=== PATIENT | female | born 1945 | race Caucasian/White ===

== ENCOUNTER 2018-02-20 11:41 | Inpatient (IN) ==
[2018-02-21] MEDS ORDERED: Albuterol 2.5 MG/3 ML NEBULIZER IH PRN (18:08)
[2018-02-21] MEDS ORDERED: Mag Hydrox/Al Hydrox/Simeth 30 ML UDC PO PRN (18:20)
[2018-02-21] MEDS: *HR* Rivaroxaban 15 MG TABLET PO SCH (21:34)
[2018-02-21] MEDS: Multivit/Ca/Min/Fe/FA 1 TAB TABLET PO SCH (21:34)
[2018-02-21] MEDS: Acetaminophen 325 MG TABLET PO SCH (21:34)
[2018-02-22] MEDS: Acetaminophen 325 MG TABLET PO SCH ×6 (04:00→22:07)
[2018-02-22] MEDS: Meropenem 1,000 MG in Water for inj. (sterile) 20 ML 10 ML IVP SCH ×2 (05:28→16:48)
[2018-02-22 05:43] LABS: Basophils % 0.6 %; Eosinophils # 0.3 K/mcL (0.0-0.6); Eosinophils % 6.3 %; Hematocrit 23.3 % (35.3-44.9); Hemoglobin 7.4 g/dL (11.5-15.4); Immature Granulocytes % 1.1 % (0-4); Lymphocytes # 1.3 K/mcL (0.6-4.6); Lymphocytes % 25.3 %; Mean Corpuscular HGB Conc 31.8 g/dL (31.6-35.5); Mean Corpuscular Hemoglobin 28.7 pg (28.0-33.3); Mean Corpuscular Volume 90.3 fL (83.0-100.0); Monocytes # 0.7 K/mcL (0.0-1.3); Monocytes % 13.6 %; Neutrophils # 2.8 K/mcL (1.6-8.9); Platelet Count 328 K/mcL (140-400); Red Blood Count 2.58 M/mcL (3.82-4.97); Red Cell Distribution Width 16.4 % (11.5-14.5); Segmented Neutrophils % 53.1 %
[2018-02-22 05:46] LABS: INR 2.2; Prothrombin Time 25.3 Seconds (9.4-12.1)
[2018-02-22 05:58] LABS: Calcium 8.8 mg/dL (8.6-10.3); Potassium 3.9 mEq/L (3.5-5.1)
[2018-02-22] MEDS: Aspirin Enteric Coated 81 MG Tablet PO SCH (08:26)
[2018-02-22] MEDS: Cholecalciferol (D-3) 1,000 UNIT TABLET PO SCH ×2 (08:26→08:36)
[2018-02-22] MEDS: Multivit/Ca/Min/Fe/FA 1 TAB TABLET PO SCH ×2 (08:26→20:58)
[2018-02-22] MEDS: Diltiazem CD (24hr) 120 MG CAPSULE PO SCH (08:26)
--- NOTE | 2018-02-22 11:28 | Internal Med History&Physical ---
Date of Encounter: 02/22/18 Time of Encounter: 11:26 Assessment and Plan (1) Bilateral pneumonia Current visit: Yes Status: Acute We will continue her antibiotics for 2 weeks as planned and follow with infectious disease by phone, near the end of that time. She will have strengthening exercises and hope to return to function, soon. If she is stable , will be able to wean oxygen. Qualifiers: Pneumonia type: due to unspecified organism Lung location: unspecified part of lung Qualified Code(s): J18.9 - Pneumonia, unspecified organism (2) Atrial fibrillation Current visit: Yes Status: Acute On cerebral toe and diltiazem for same. Qualifiers: Atrial fibrillation type: paroxysmal Qualified Code(s): I48.0 - Paroxysmal atrial fibrillation (3) Septic arthritis Current visit: Yes Status: Acute Plan reimplantation if clinically stable, as noted above. Qualifiers: Septic arthritis location: hip Septic arthritis organism: due to unspecified organism Laterality: right Qualified Code(s): M00.9 - Pyogenic arthritis, unspecified (4) GERD (gastroesophageal reflux disease) Current visit: Yes Status: Acute We will continue PPI. Qualifiers: Esophagitis presence: esophagitis presence not specified Qualified Code(s) : K21.9 - Gastro-esophageal reflux disease without esophagitis (5) Hemochromatosis Current visit: No Status: Chronic Not currently an issue. Qualifiers: Hemochromatosis type: hereditary Qualified Code(s): E83.110 - Hereditary hemochromatosis (6) Acute blood loss anemia Current visit: Yes Status: Acute This is ongoing and apparently complicated by renal insufficiency. (7) Chronic renal disease, stage III Current visit: Yes Status: Acute We will follow serial basic metabolic panels. (8) Paraproteinemia Current visit: Yes Status: Acute This will need to be followed at discharge. Not sure she has seen a specialist about this. (9) Hypervitaminosis D Current visit: Yes Status: Acute Vitamin D is on hold and we will recheck level. (10) Dermatomyositis Current visit: Yes Status: Acute Apparently, not acute but in past history. (11) History of DVT (deep vein thrombosis) Current visit: Yes Status: Acute On Xarelto for prevention. (12) Glaucoma Current visit: Yes Status: Acute On multiple eyedrops which we will continue. Qualifiers: Glaucoma type: unspecified Laterality: bilateral Qualified Code(s): H40.9 - Unspecified glaucoma Internal Medicine - H&P: HPI Chief complaint: Weakness after IV antibiotics. Admitted From: Hospital to Hospital Transfer Plans for Post Hospital Care: Home History of present illness: Ms. 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 She was admitted to [facility] with new infiltrates on her lungs and was treated with antibiotics for same. Chest x-ray at outside hospital was abnormal with bilateral infiltrates but especially left lower lung. She was seen in consultation by Dr. Drew Mathews, infectious disease medicine, who wants her to be on 2 weeks of IV meropenem, to have CBC, sedimentation rate , CRP, creatinine obtained every Saturday and faxed to him. (His fax number is [phone].) She is now sent here for strengthening and therapies to improve home function. She has a PICC line in the right upper extremity. Past medical history is significant for right total revision in May ( approximately ) 2017 with infection in September 2017. She underwent right hip radical debridement with spacer placement. This was revised in November 2017, as well. She was treated with antibiotics and was to have reimplantation on 09/2017. This surgery could not be performed as she had respiratory distress and was admitted to [facility] with pneumonia. Her kidneys have not functioned well and this was noted to be worse at her recent admission. Creatinine was up to 1.81. Apparently, she had improvement of this down into the 1.7 range. She was also noted to have a abnormal protein electrophoresis. Past medical history is as noted below. She is intolerant to sulfa and penicillin which cause stomach upset. She was treated for hemochromatosis beginning in 2007 but has not had a phlebotomy since May 2016 because of her upcoming problems with hip surgery. Recently, she has been noted to have anemia of blood loss and recent hemoglobin was 7.5. GERD, long-standing. this is treated with lansoprazole. She has a history of migraines but these have not been a recent problem. She has a history of paroxysmal atrial fibrillation and has had episodes, twice this year. She takes Cardiizem and Xarelto for same. She had a TIA in 2011. She has glaucoma for which she takes multiple eyedrops. She had a problem with hemorrhage after breast lumpectomy in 1988. History is significant for DVT in both legs, in the past. She has a history of dermatomyositis, diagnosed 2003, and for this reason takes Plaquenil. She had vitamin D deficiency and was on 4000 units daily for this. However because of hypercalcemia during her recent admission she was have a high vitamin D level (137) and this was discontinued. 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 She has a history of osteopenia and was on vitamin D as a way to treat this. Past surgical history is extensive and highlights include: Right ovarian cystectomy, 1965. D&C 1972. ORIF right clavicle fracture with subsequent hardware removal, 1975. Bone graft , right clavicle, 1977. YADIRA/BSO 1985. Right breast lumpectomy, benign, 1988. Cervical disc surgery, 1997. Cholecystectomy 2005. Left carpal tunnel release 2006. Liver biopsy 2007. Colonoscopic polypectomy 2007. Multiple colonoscopies thereafter. Arthroscopy left knee 2008. Right total hip replacement 2009. Bilateral levator surgery of eyelids, 2011. Eye surgery, left, 2014 for retina. Cataracts removed 2016. Left eye repair of macular hole, 2017. Right hip surgeries including radical debridement, as above, 2018. Review of systems is significant for right facial paralysis in 196. Current symptoms are controlled with PPI. She lives with her son. She does not smoke. Alcohol intake is rare. Past Med Surg Social Fam HX - Past Medical History Medical history: atrial fibrillation, cancer, GERD, glaucoma, hypertension, kidney stones, migraine, TIA, other Additional medical history: facial paralysis, right clavicular fracture, concussion, osteoarthritis, sepsis, hemochromatosis, DVT, chest pain, upper neck herniated disk, dermatomyositis, cataracts, carpal tunnel, tachycardia, anemia, squamous cell carcinoma, GI polyps, villalobos's cyst LLE, diverticular abscess, right kidney renal cyst, ovarian cyst, breast cancer Psychiatric history: no psych history - Past Surgical History Surgical History: breast surgery, cancer surgery, cholecystectomy, hip replacement, hysterectomy, knee replacement Additional surgical history: ovarian cyst excision, D&C, right clavicular bone graft, right breast lumpectomy, carpal tunnel surgery, liver biopsy, left TKR, right THR, bilateral eye levator surgery, bilateral eye cataract removal, right hip arthroplasty revision, right hip hardware removal - Social History Smoking Status: Never smoker Smokeless Tobacco Status: No Alcohol use: none Drug use: none Internal Medicine - H&P: Meds Calcium Carbonate/Vitamin D3 [Calcium 500 + D Tablet] 1 each PO DAILY 04/18/15 [ History] Lansoprazole [Prevacid] 30 mg PO DAILY 04/18/15 [History] Multivitamin/Iron/Folic Acid [Centrum Complete Multivit Tab] 1 each PO BID 04/18 [History] RX: Hydroxychloroquine [Plaquenuil] 400 mg PO DAILY 04/18/15 [History] Aspirin [Lo-Dose Aspirin EC] 81 mg PO DAILY 12/06/16 [History] Albuterol Neb [Proventil Neb] 2.5 mg IH Q6H PRN 02/21/18 [History] RX: Meropenem [Merrem] 1,000 mg IVPB Q12HR 02/21/18 [History] RX: Rivaroxaban [Xarelto] 15 mg PO HS 02/21/18 [History] dilTIAZem HCl [Diltiazem 24Hr ER] 120 mg PO DAILY 02/21/18 [History] 3 Allergy/AdvReac Type Severity Reaction Status Date / Time phenylephrine Allergy Intermediate Allergic Verified 04/18/15 10:57 rash to eyelid tropicamide Allergy Intermediate Allergic Verified 04/18/15 11:00 rash to eyelid Penicillins Allergy Unknown Unknown Verified 04/18/15 10:40 Sulfa (Sulfonamide Allergy Unknown Unknown Verified 04/18/15 10:40 Antibiotics) All Systems PM: Patient has no complaint of chest discomfort, dyspnea, orthopnea, breathing problems, palpitations, nausea or vomiting, constipation or diarrhea, other changes in bowel habits, heartburn, difficulty with urination, kidney problems or kidney stones, fevers chills or sweats, rash or itching, seizures, headache or lightheadedness, heat or cold intolerance, blood problems or anemia, or other new complaints, except as mentioned above. Review of systems is otherwise negative. - Constitutional Vitals: Temp Pulse Resp BP Pulse Ox 97.6 F 83 16 148/75 98 02/22/18 06:56 02/22/18 06:56 02/22/18 06:56 02/22/18 06:56 02/22/18 06:56 Exam: Examination: (Except as mentioned above): General: In no apparent distress, alert and oriented 3. Head: Atraumatic and normocephalic. Eyes: Extraocular muscles are intact, pupils equal round and reactive to light and accommodation. Sclerae anicteric. Ears: External ears are normal to inspection and hearing is grossly normal. Nose: Patent without lesion noted. Mouth: No intraoral lesions seen. Dentition is unremarkable. Neck: Supple with trachea midline. There is no thyromegaly or adenopathy and carotids are 2+ without bruit heard. Respiratory: No use of accessory muscles. Lungs are clear throughout, except moist rales at left base.. Normal airflow. Cardiovascular: Regular rate and rhythm without murmur appreciated. Abdomen: Bowel sounds are normal. No hepatosplenomegaly masses or tenderness. Obese and therefore difficult to palpate deeply.Patient is examined upright in chair and this also limits exam. Extremities: No cyanosis clubbing or edema. Neurological: A and O 3. Cranial nerves II through XII are intact. No focal deficits and no abnormal movements or postures. Skin: Warm and non-diaphoretic with no lesions noted. Breasts, pelvic and rectal: Not examined. Internal Med - H&P Results - Labs CBC & Chem 7: 02/22/18 04:35 02/22/18 04:35 Labs: Short CBC 02/22/18 Range/Units 04:35 WBC 5.2 (4.3-11.1) K/mcL Hgb 7.4 L (11.5-15.4) g/dL Hct 23.3 L (35.3-44.9) % Plt Count 328 (140-400) K/mcL Neutrophils # 2.8 (1.6-8.9) K/mcL [facility] 02/22/18 04:35 Sodium 138 Potassium 3.9 Chloride 104 Carbon Dioxide 28 BUN 10 Creatinine 1.59 H Glucose 88 Calcium 8.8
[2018-02-22] MEDS: *HR* Rivaroxaban 15 MG TABLET PO SCH (16:46)
[2018-02-23] MEDS: Acetaminophen 325 MG TABLET PO SCH ×3 (01:11→09:17)
[2018-02-23] MEDS: Meropenem 1,000 MG in Water for inj. (sterile) 20 ML 10 ML IVP SCH ×2 (06:23→17:57)
[2018-02-23] MEDS: Multivit/Ca/Min/Fe/FA 1 TAB TABLET PO SCH ×2 (09:16→22:34)
[2018-02-23] MEDS: Diltiazem CD (24hr) 120 MG CAPSULE PO SCH (09:17)
[2018-02-23] MEDS: Cholecalciferol (D-3) 1,000 UNIT TABLET PO SCH (09:17)
[2018-02-23] MEDS: Aspirin Enteric Coated 81 MG Tablet PO SCH (09:17)
--- NOTE | 2018-02-23 10:32 | Internal Med Progress Note ---
Date of Encounter: 02/23/18 Time of Encounter: 10:29 - Assessment and plan (1) Bilateral pneumonia Current Visit: Yes Status: Acute Assessment and plan: Improving. Continue IV antibiotics. Maintaining oxygen saturation on room air. Qualifiers: Pneumonia type: due to unspecified organism Lung location: unspecified part of lung Qualified Code(s): J18.9 - Pneumonia, unspecified organism (2) Atrial fibrillation Current Visit: Yes Status: Acute Assessment and plan: Rate and rhythm stable. Continues xarelto. Qualifiers: Atrial fibrillation type: paroxysmal Qualified Code(s): I48.0 - Paroxysmal atrial fibrillation (3) Septic arthritis Current Visit: Yes Status: Acute Assessment and plan: Continue IV antibiotics. Follow up with ortho as scheduled. Qualifiers: Septic arthritis location: hip Septic arthritis organism: due to unspecified organism Laterality: right Qualified Code(s): M00.9 - Pyogenic arthritis, unspecified (4) Acute blood loss anemia Current Visit: Yes Status: Acute Assessment and plan: Chronic issue. Last hemoglobin 7.4. Will follow. Patient asymptomatic. (5) Chronic renal disease, stage III Current Visit: Yes Status: Acute Assessment and plan: Creatinine 1.59. Will continue to monitor labs. Avoid any nephrotoxic agents. (6) History of DVT (deep vein thrombosis) Current Visit: Yes Status: Acute Assessment and plan: on xarelto for prevention. - Time Spent With Patient 25 - 35 minutes - Subjective Interval history: Patient resting in bed. States pain is controlled. Bowels moving as normal. Maintaining appetite and hydration. Denies fever, chills, nausea vomiting or diarrhea. Denies shortness of breath or chest pain. - Constitutional Vitals: Temp Pulse Resp BP Pulse Ox 97.7 F 85 16 137/74 93 02/23/18 07:01 02/23/18 07:01 02/23/18 07:01 02/23/18 07:01 02/23/18 07:01 General appearance: Present: cooperative, A&O X 3, no acute distress, answers questions appropriately - Head Head exam: Present: atraumatic, normocephalic - Eye Eye exam: Present: PERRL, conjuntiva pink, sclera anicteric Pupils: Present: PERRL - Neck Neck exam general surgery: Present: supple, trachea midline. Absent: lymphadenopathy - Respiratory Respiratory exam: Present: CTAB. Absent: accessory muscle use, rales, rhonchi, wheezes - Cardiovascular Cardiovascular exam: Present: RRR, +S1, +S2. Absent: diastolic murmur, gallop, rubs, systolic murmur - GI/Abdominal GI/Abdominal exam: Present: normal bowel sounds, soft, no peritoneal signs. Absent: distended, tenderness - Extremities Exam Extremities exam: Present: warm, radial pulses palpable and symmetrical. Absent : calf tenderness, cyanotic, pedal edema Additional comments: PICC line Right upper extremity - Neurological Exam Neurological exam: Present: CN II-XII intact, oriented X3, no focal deficits. Absent: pronater drift, facial droop, speech deficit - Skin Skin exam: Present: dry, intact Internal Medicine: Result - Labs CBC & Chem 7: 02/22/18 04:35 02/22/18 04:35 - ABG Interpretation ABG results: PT/INR, D-dimer PT 25.3 Seconds (9.4-12.1) H 02/22/18 04:35 Consult Discharge Plan - Plan Referrals: Palmira Piedra MD [Primary Care Provider] -
[2018-02-23] MEDS: Acetaminophen 325 MG TABLET PO PRN (14:14)
[2018-02-23] MEDS: *HR* Rivaroxaban 15 MG TABLET PO SCH (16:14)
[2018-02-24] MEDS: Meropenem 1,000 MG in Water for inj. (sterile) 20 ML 10 ML IVP SCH ×2 (06:05→18:21)
[2018-02-24 06:17] LABS: Basophils % 0.6 %; Eosinophils # 0.3 K/mcL (0.0-0.6); Eosinophils % 4.1 %; Hematocrit 23.3 % (35.3-44.9); Hemoglobin 7.4 g/dL (11.5-15.4); Immature Granulocytes % 1.1 % (0-4); Lymphocytes # 1.7 K/mcL (0.6-4.6); Lymphocytes % 27.1 %; Mean Corpuscular HGB Conc 31.8 g/dL (31.6-35.5); Mean Corpuscular Hemoglobin 28.2 pg (28.0-33.3); Mean Corpuscular Volume 88.9 fL (83.0-100.0); Mean Platelet Volume 9.9 fL (9.4-12.4); Monocytes # 0.9 K/mcL (0.0-1.3); Monocytes % 13.4 %; Neutrophils # 3.4 K/mcL (1.6-8.9); Platelet Count 343 K/mcL (140-400); Red Blood Count 2.62 M/mcL (3.82-4.97); Red Cell Distribution Width 16.6 % (11.5-14.5); Segmented Neutrophils % 53.7 %
--- NOTE | 2018-02-24 09:06 | Internal Med Progress Note ---
Date of Encounter: 02/24/18 Time of Encounter: 09:04 - Assessment and plan (1) Bilateral pneumonia Current Visit: Yes Status: Acute Assessment and plan: Improving. Continue IV antibiotics. Maintaining oxygen saturation on room air. Qualifiers: Pneumonia type: due to unspecified organism Lung location: unspecified part of lung Qualified Code(s): J18.9 - Pneumonia, unspecified organism (2) Atrial fibrillation Current Visit: Yes Status: Acute Assessment and plan: Rate and rhythm stable. Continues xarelto. Qualifiers: Atrial fibrillation type: paroxysmal Qualified Code(s): I48.0 - Paroxysmal atrial fibrillation (3) Septic arthritis Current Visit: Yes Status: Acute Assessment and plan: Continue IV antibiotics. Follow up with ortho as scheduled. Qualifiers: Septic arthritis location: hip Septic arthritis organism: due to unspecified organism Laterality: right Qualified Code(s): M00.9 - Pyogenic arthritis, unspecified (4) Acute blood loss anemia Current Visit: Yes Status: Acute Assessment and plan: Chronic issue. Last hemoglobin 7.4. Will follow. Patient asymptomatic. (5) Chronic renal disease, stage III Current Visit: Yes Status: Acute Assessment and plan: Creatinine 1.55. Will continue to monitor labs. Avoid any nephrotoxic agents. (6) History of DVT (deep vein thrombosis) Current Visit: Yes Status: Acute Assessment and plan: on xarelto for prevention. - Time Spent With Patient 25 - 35 minutes - Subjective Interval history: Patient sitting up and chair. States pain is controlled. Bowels moving as normal. Maintaining appetite and hydration. Denies fever, chills, nausea vomiting or diarrhea. Denies shortness of breath or chest pain. Oxygen level 94% on room air. - Constitutional Vitals: Temp Pulse Resp BP Pulse Ox 97.6 F 87 16 121/69 92 02/24/18 07:39 02/24/18 07:39 02/24/18 07:39 02/24/18 07:39 02/24/18 07:39 General appearance: Present: cooperative, A&O X 3, no acute distress, answers questions appropriately - Head Head exam: Present: atraumatic, normocephalic - Eye Eye exam: Present: PERRL, conjuntiva pink, sclera anicteric Pupils: Present: PERRL - Neck Neck exam general surgery: Present: supple, trachea midline. Absent: lymphadenopathy - Respiratory Respiratory exam: Present: CTAB. Absent: accessory muscle use, rales, rhonchi, wheezes Additional comments: Fine crackle to left lower lobe - Cardiovascular Cardiovascular exam: Present: RRR, +S1, +S2. Absent: diastolic murmur, gallop, rubs, systolic murmur - GI/Abdominal GI/Abdominal exam: Present: normal bowel sounds, soft, no peritoneal signs. Absent: distended, tenderness - Extremities Exam Extremities exam: Present: warm, radial pulses palpable and symmetrical. Absent : calf tenderness, cyanotic, pedal edema - Neurological Exam Neurological exam: Present: CN II-XII intact, oriented X3, no focal deficits. Absent: pronater drift, facial droop, speech deficit - Skin Skin exam: Present: dry, intact Internal Medicine: Result - Labs CBC & Chem 7: 02/24/18 05:50 02/24/18 05:50 Labs: Short CBC 02/24/18 Range/Units 05:50 WBC 6.3 (4.3-11.1) K/mcL Hgb 7.4 L (11.5-15.4) g/dL Hct 23.3 L (35.3-44.9) % Plt Count 343 (140-400) K/mcL Neutrophils # 3.4 (1.6-8.9) K/mcL [facility] 02/24/18 05:50 Creatinine 1.55 H - ABG Interpretation ABG results: PT/INR, D-dimer PT 25.3 Seconds (9.4-12.1) H 02/22/18 04:35 Consult Discharge Plan - Plan Referrals: Palmira Piedra MD [Primary Care Provider] -
[2018-02-24] MEDS: Diltiazem CD (24hr) 120 MG CAPSULE PO SCH (09:57)
[2018-02-24] MEDS: Multivit/Ca/Min/Fe/FA 1 TAB TABLET PO SCH ×2 (09:57→23:05)
[2018-02-24] MEDS: Cholecalciferol (D-3) 1,000 UNIT TABLET PO SCH (09:57)
[2018-02-24] MEDS: Aspirin Enteric Coated 81 MG Tablet PO SCH (09:57)
[2018-02-24] MEDS: *HR* Rivaroxaban 15 MG TABLET PO SCH (18:21)
[2018-02-25] MEDS: Meropenem 1,000 MG in Water for inj. (sterile) 20 ML 10 ML IVP SCH ×2 (05:47→18:49)
[2018-02-25] MEDS: Multivit/Ca/Min/Fe/FA 1 TAB TABLET PO SCH ×2 (09:14→20:32)
[2018-02-25] MEDS: Diltiazem CD (24hr) 120 MG CAPSULE PO SCH (09:14)
--- NOTE | 2018-02-25 10:40 | Internal Med Progress Note ---
Date of Encounter: 02/25/18 Time of Encounter: 10:38 - Assessment and plan (1) Bilateral pneumonia Current Visit: Yes Status: Acute Assessment and plan: Improving. Continue IV antibiotics. Maintaining oxygen saturation on room air. Qualifiers: Pneumonia type: due to unspecified organism Lung location: unspecified part of lung Qualified Code(s): J18.9 - Pneumonia, unspecified organism (2) Atrial fibrillation Current Visit: Yes Status: Acute Assessment and plan: Rate and rhythm stable. Continues xarelto. Qualifiers: Atrial fibrillation type: paroxysmal Qualified Code(s): I48.0 - Paroxysmal atrial fibrillation (3) Septic arthritis Current Visit: Yes Status: Acute Assessment and plan: Continue IV antibiotics. Follow up with ortho as scheduled. Qualifiers: Septic arthritis location: hip Septic arthritis organism: due to unspecified organism Laterality: right Qualified Code(s): M00.9 - Pyogenic arthritis, unspecified (4) Acute blood loss anemia Current Visit: Yes Status: Acute Assessment and plan: Chronic issue. Last hemoglobin 7.4. Will follow. repeat CBC, BMP in am. Patient asymptomatic. (5) Chronic renal disease, stage III Current Visit: Yes Status: Acute Assessment and plan: Creatinine 1.55. Will continue to monitor labs. will repeat BMP in am. Avoid any nephrotoxic agents. (6) History of DVT (deep vein thrombosis) Current Visit: Yes Status: Acute Assessment and plan: on xarelto for prevention. - Time Spent With Patient less than 15 minutes - Subjective Interval history: Participating well with therapy. Toe touch weight-bearing to right lower extremity. Standby to contact guard assist for transfers. Ambulating with front wheeled walker. States pain is controlled. Bowels moving as normal. Maintaining appetite and hydration. Denies fever, chills, nausea vomiting or diarrhea. Denies shortness of breath or chest pain. Oxygen level 94% on room air. has been having migraines daily, photophobia. denies IDOP at this time. nursing to follow up on when appt is for hematology, oncology for bone marrow biopsy results. - Constitutional Vitals: Temp Pulse Resp BP Pulse Ox 97.9 F 82 16 114/72 90 02/25/18 09:00 02/25/18 09:00 02/25/18 09:00 02/25/18 09:00 02/25/18 09:00 General appearance: Present: cooperative, A&O X 3, no acute distress, answers questions appropriately - Head Head exam: Present: atraumatic, normocephalic - Eye Eye exam: Present: PERRL, conjuntiva pink, sclera anicteric Pupils: Present: PERRL - Neck Neck exam general surgery: Present: supple, trachea midline. Absent: lymphadenopathy - Respiratory Respiratory exam: Present: CTAB. Absent: accessory muscle use, rales, rhonchi, wheezes - Cardiovascular Cardiovascular exam: Present: RRR, +S1, +S2. Absent: diastolic murmur, gallop, rubs, systolic murmur - GI/Abdominal GI/Abdominal exam: Present: normal bowel sounds, soft, no peritoneal signs. Absent: distended, tenderness - Extremities Exam Extremities exam: Present: warm, radial pulses palpable and symmetrical. Absent : calf tenderness, cyanotic, pedal edema - Neurological Exam Neurological exam: Present: CN II-XII intact, oriented X3, no focal deficits. Absent: pronater drift, facial droop, speech deficit - Skin Skin exam: Present: dry, intact Additional comments: scar to right hip Internal Medicine: Result - Labs CBC & Chem 7: 02/24/18 05:50 02/24/18 05:50 - ABG Interpretation ABG results: PT/INR, D-dimer PT 25.3 Seconds (9.4-12.1) H 02/22/18 04:35 Consult Discharge Plan - Plan Referrals: Matthew Francois MD [Partnered Physician] - 03/04/18 8:30 am Palmira Piedra MD [Primary Care Provider] -
[2018-02-25] MEDS: Aspirin Enteric Coated 81 MG Tablet PO SCH (13:46)
[2018-02-25] MEDS: *HR* Rivaroxaban 15 MG TABLET PO SCH (18:49)
[2018-02-25] MEDS: Acetaminophen 325 MG TABLET PO PRN (18:49)
[2018-02-26] MEDS: Meropenem 1,000 MG in Water for inj. (sterile) 20 ML 10 ML IVP SCH ×2 (05:59→17:49)
[2018-02-26 06:16] LABS: Basophils % 0.4 %; Eosinophils # 0.4 K/mcL (0.0-0.6); Eosinophils % 5.3 %; Hematocrit 22.4 % (35.3-44.9); Immature Granulocytes % 1.2 % (0-4); Lymphocytes # 1.8 K/mcL (0.6-4.6); Lymphocytes % 25.8 %; Mean Corpuscular HGB Conc 31.3 g/dL (31.6-35.5); Mean Corpuscular Volume 89.6 fL (83.0-100.0); Mean Platelet Volume 9.8 fL (9.4-12.4); Monocytes # 0.9 K/mcL (0.0-1.3); Monocytes % 13.3 %; Neutrophils # 3.8 K/mcL (1.6-8.9); Platelet Count 348 K/mcL (140-400); Red Cell Distribution Width 16.9 % (11.5-14.5)
[2018-02-26 06:32] LABS: Calcium 9.4 mg/dL (8.6-10.3); Potassium 3.6 mEq/L (3.5-5.1)
[2018-02-26] MEDS: Diltiazem CD (24hr) 120 MG CAPSULE PO SCH (08:59)
[2018-02-26] MEDS: Aspirin Enteric Coated 81 MG Tablet PO SCH (08:59)
[2018-02-26] MEDS: Multivit/Ca/Min/Fe/FA 1 TAB TABLET PO SCH ×2 (09:00→20:35)
--- NOTE | 2018-02-26 11:54 | Internal Med Progress Note ---
Addendum entered and electronically signed by Sushil Reid MD 02/27/18 14:04: Multiple attempts were unsuccessful to see patient because she was in the bathroom and/or in therapies this date. Original Note: Date of Encounter: 02/26/18 Time of Encounter: 11:52 - Assessment and plan (1) Bilateral pneumonia Current Visit: Yes Status: Acute Assessment and plan: Improving. Continue IV antibiotics. Maintaining oxygen saturation on room air. Qualifiers: Pneumonia type: due to unspecified organism Lung location: unspecified part of lung Qualified Code(s): J18.9 - Pneumonia, unspecified organism (2) Atrial fibrillation Current Visit: Yes Status: Acute Assessment and plan: Rate and rhythm stable. Continues xarelto. Qualifiers: Atrial fibrillation type: paroxysmal Qualified Code(s): I48.0 - Paroxysmal atrial fibrillation (3) Septic arthritis Current Visit: Yes Status: Acute Assessment and plan: Continue IV antibiotics. Follow up with ortho as scheduled. Qualifiers: Septic arthritis location: hip Septic arthritis organism: due to unspecified organism Laterality: right Qualified Code(s): M00.9 - Pyogenic arthritis, unspecified (4) Acute blood loss anemia Current Visit: Yes Status: Acute Assessment and plan: Chronic issue. hemoglobin 7.0 today. Will follow. repeat CBC in am. Patient asymptomatic. (5) Chronic renal disease, stage III Current Visit: Yes Status: Acute Assessment and plan: Creatinine 1.4. Will continue to monitor labs. will repeat BMP in am. Avoid any nephrotoxic agents. (6) History of DVT (deep vein thrombosis) Current Visit: Yes Status: Acute Assessment and plan: on xarelto for prevention. - Time Spent With Patient 25 - 35 minutes - Subjective Interval history: Participating well with therapy. Toe touch weight-bearing to right lower extremity. Standby to contact guard assist for transfers. Ambulating with front wheeled walker. States pain is controlled. Bowels moving as normal. Maintaining appetite and hydration. Denies fever, chills, nausea vomiting or diarrhea. Denies shortness of breath or chest pain. has been having migraines daily, photophobia. denies DIOP at this time. nursing to follow up on when appt is for hematology, oncology for bone marrow biopsy results. - Constitutional Vitals: Temp Pulse Resp BP Pulse Ox 97.8 F 88 20 131/70 90 02/26/18 07:52 10/17/18 07:52 02/26/18 07:52 02/26/18 07:52 02/26/18 07:52 General appearance: Present: cooperative, A&O X 3, no acute distress, answers questions appropriately - Head Head exam: Present: atraumatic, normocephalic - Eye Eye exam: Present: PERRL, conjuntiva pink, sclera anicteric Pupils: Present: PERRL - Neck Neck exam general surgery: Present: supple, trachea midline. Absent: lymphadenopathy - Respiratory Respiratory exam: Present: CTAB. Absent: accessory muscle use, rales, rhonchi, wheezes - Cardiovascular Cardiovascular exam: Present: RRR, +S1, +S2. Absent: diastolic murmur, gallop, rubs, systolic murmur - GI/Abdominal GI/Abdominal exam: Present: normal bowel sounds, soft, no peritoneal signs. Absent: distended, tenderness - Extremities Exam Extremities exam: Present: warm, radial pulses palpable and symmetrical. Absent: calf tenderness, cyanotic, pedal edema - Neurological Exam Neurological exam: Present: CN II-XII intact, oriented X3, no focal deficits. Absent: pronater drift, facial droop, speech deficit - Skin Skin exam: Present: dry, intact Internal Medicine: Result - Labs CBC & Chem 7: 02/26/18 05:50 02/26/18 05:50 Labs: Short CBC 02/26/18 Range/Units 05:50 WBC 6.9 (4.3-11.1) K/mcL Hgb 7.0 L (11.5-15.4) g/dL Hct 22.4 L (35.3-44.9) % Plt Count 348 (140-400) K/mcL Neutrophils # 3.8 (1.6-8.9) K/mcL BMP 02/26/18 05:50 Sodium 140 Potassium 3.6 Chloride 107 Carbon Dioxide 27 BUN 15 Creatinine 1.40 H Glucose 88 Calcium 9.4 - ABG Interpretation ABG results: PT/INR, D-dimer PT 25.3 Seconds (9.4-12.1) H 02/22/18 04:35 Consult Discharge Plan - Plan Referrals: Matthew Francois MD [Partnered Physician] - 03/04/18 8:30 Palmira Beavers MD [Primary Care Provider] -
--- NOTE | 2018-02-26 16:42 | Psychological Evaluation ---
Date of Encounter: 02/26/18 Time of Encounter: 02:45 History of Present Illness History of present illness: Ms. 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 Home Medications and Allergies Calcium Carbonate/Vitamin D3 [Calcium 500 + D Tablet] 1 each PO DAILY 04/18/15 [ History] Hydroxychloroquine [Plaquenuil] 400 mg PO DAILY 04/18/15 [History] Lansoprazole [Prevacid] 30 mg PO DAILY 04/18/15 [History] Multivitamin/Iron/Folic Acid [Centrum Complete Multivit Tab] 1 each PO BID 04/18 [History] Aspirin [Lo-Dose Aspirin EC] 81 mg PO DAILY 12/06/16 [History] Albuterol Neb [Proventil Neb] 2.5 mg IH Q6H PRN 02/21/18 [History] Meropenem [Merrem] 1,000 mg IVPB Q12HR 02/21/18 [History] Rivaroxaban [Xarelto] 15 mg PO HS 02/21/18 [History] dilTIAZem HCl [Diltiazem 24Hr ER] 120 mg PO DAILY 02/21/18 [History] 3 Allergy/AdvReac Type Severity Reaction Status Date / Time phenylephrine Allergy Intermediate Allergic Verified 04/18/15 10:57 rash to eyelid tropicamide Allergy Intermediate Allergic Verified 04/18/15 11:00 rash to eyelid Penicillins Allergy Unknown Unknown Verified 04/18/15 10:40 Sulfa (Sulfonamide Allergy Unknown Unknown Verified 04/18/15 10:40 Antibiotics) Social History - Social History Social History: since 2011 with 3 adult children one of which lives with her. 30 years with [employer] and retired. Has 24 hour care at home between son and grandson. - Alcohol Use Alcohol Use: none - Drug Use Drug Use: none Cognitive/Emotional Assessment - Cognitive Ability Abstract Thinking Ability: No Deficits Noted Attention Span Ability: Capable of Focused Attention, Capable of Sustained Attention Language Function Ability: No Deficits Noted Problem Solving Ability: Able To Solve Simple Problems Level of Alertness: Alert Memory Description: Recent Intact, Immediate Intact, Gear Lapper Intact Orientation: Person, Place Ability to Follow Directions: Good Speech Pattern: Normal rate Thought Process: Intact Calculations: Able to spell WORLD backw - Emotional Status Mood Description: Anxious Affect Description: Congruent with mood Coping Ability: Unsure about ability to cope (Very worried about situation and ability to get better. Anxious and breathing becomes irratic.) Assessment & Plan - Diagnosis (1) Adjustment disorder with anxious mood - Prognosis Prognosis: Fair - Treatment Plan Treatment Plan/Recommendations: Will follow as needed. Procedures - Intervention Interventions: Supportive Counseling - Participants Therapy Participant: Patient - Session Time Session Start Time: 02:45 Session Stop Time: 03:15
[2018-02-26] MEDS: *HR* Rivaroxaban 15 MG TABLET PO SCH (17:50)
[2018-02-26] MEDS: Acetaminophen 325 MG TABLET PO PRN (20:35)
[2018-02-27] MEDS ORDERED: *HR* Water for inj. (Sterile) 20 ML VIAL IV ONE (11:19)
[2018-02-27] MEDS ORDERED: Aspirin Enteric Coated 81 MG Tablet PO ONE (11:19)
[2018-02-27] MEDS ORDERED: Diltiazem CD (24hr) 120 MG CAPSULE PO ONE (11:19)
[2018-02-27 11:54] LABS: Hematocrit 22.9 % (35.3-44.9); Hemoglobin 7.1 g/dL (11.5-15.4)
--- NOTE | 2018-02-27 14:07 | Internal Med Progress Note ---
Date of Encounter: 02/27/18 Time of Encounter: 14:05 - Assessment and plan (1) Bilateral pneumonia Current Visit: Yes Status: Acute Assessment and plan: Will plan to discuss next week with Dr. Drew Mathews M.D., infectious disease specialist, about whether or not patient may be discharged. Qualifiers: Pneumonia type: due to unspecified organism Lung location: unspecified part of lung Qualified Code(s): J18.9 - Pneumonia, unspecified organism (2) Atrial fibrillation Current Visit: Yes Status: Acute Assessment and plan: Currently in normal sinus rhythm but will follow. Qualifiers: Atrial fibrillation type: paroxysmal Qualified Code(s): I48.0 - Paroxysmal atrial fibrillation (3) Septic arthritis Current Visit: Yes Status: Acute Assessment and plan: Apparently stable and on antibiotics. Qualifiers: Septic arthritis location: hip Septic arthritis organism: due to unspecified organism Laterality: right Qualified Code(s): M00.9 - Pyogenic arthritis, unspecified (4) GERD (gastroesophageal reflux disease) Current Visit: Yes Status: Acute Assessment and plan: No complaints and will continue current regimen. Qualifiers: Esophagitis presence: esophagitis presence not specified Qualified Code(s): K21.9 - Gastro-esophageal reflux disease without esophagitis (5) Hemochromatosis Current Visit: No Status: Chronic Assessment and plan: Not an issue, with current situation. Qualifiers: Hemochromatosis type: hereditary Qualified Code(s): E83.110 - Hereditary hemochromatosis (6) Acute blood loss anemia Current Visit: Yes Status: Acute Assessment and plan: This is ongoing and we will follow. May be worsened by paraproteinemia or plasmacytoma. (7) Chronic renal disease, stage III Current Visit: Yes Status: Acute Assessment and plan: Improving, slightly. (8) Paraproteinemia Current Visit: Yes Status: Acute (9) Hypervitaminosis D Current Visit: Yes Status: Acute Assessment and plan: No current issue. (10) Dermatomyositis Current Visit: Yes Status: Acute Assessment and plan: Clinically stable. (11) History of DVT (deep vein thrombosis) Current Visit: Yes Status: Acute (12) Glaucoma Current Visit: Yes Status: Acute Assessment and plan: We will continue current regimen. Qualifiers: Glaucoma type: unspecified Laterality: bilateral Qualified Code(s): H40.9 - Unspecified glaucoma - Subjective Interval history: Patient is still tired and occasionally desaturates but otherwise is feeling well. She denies other problems and is been moving her bowels well. She has no other new complaints. We discussed her anemia and need to follow-up with oncologist regarding paraproteinemia. Discussed care with other providers and/or nursing. Patient has no complaint of chest discomfort, dyspnea, orthopnea, palpitations, nausea or vomiting, constipation or diarrhea, other changes in bowel habits, difficulty with urination, rash or itching, or other new complaints, except as mentioned above. Review of systems is otherwise negative. - Constitutional Vitals: Temp Pulse Resp BP Pulse Ox 98.4 F 93 16 125/67 93 02/27/18 13:35 02/27/18 07:49 02/27/18 07:49 02/27/18 07:49 02/27/18 07:49 General appearance: Present: no acute distress Exam: Examination: (Except as mentioned above): General: In no apparent distress. Alert and oriented 3. Nondiaphoretic. Head: Atraumatic and normocephalic. Respiratory: No use of accessory muscles. Lungs are clear throughout. Normal airflow. Cardiovascular: Regular rate and rhythm without murmur appreciated. Abdomen: Bowel sounds are normal. No hepatosplenomegaly mass or tenderness appreciated. Obese and therefore difficult to palpate deeply. Patient is examined upright in chair and this also limits exam. Patient is examined uprig ht in chair and this also limits exam. Extremities: No cyanosis clubbing or edema. Skin: Warm and non-diaphoretic with no new lesions noted. Internal Medicine: Result - Labs CBC & Chem 7: 02/27/18 05:15 02/26/18 05:50 Labs: Short CBC 02/27/18 Range/Units 05:15 Hgb 7.1 L (11.5-15.4) g/dL Hct 22.9 L (35.3-44.9) % - ABG Interpretation ABG results: PT/INR, D-dimer PT 25.3 Seconds (9.4-12.1) H 02/22/18 04:35 Consult Discharge Plan - Plan Referrals: Matthew Francois MD [Partnered Physician] - 03/04/18 8:30 am Palmira Piedra MD [Primary Care Provider] -
[2018-02-27] MEDS: *HR* Rivaroxaban 15 MG TABLET PO SCH (17:53)
[2018-02-27] MEDS: Meropenem 1,000 MG in Water for inj. (sterile) 20 ML 10 ML IVP SCH ×2 (17:54→20:48)
[2018-02-27] MEDS: Multivit/Ca/Min/Fe/FA 1 TAB TABLET PO SCH (20:45)
[2018-02-27] MEDS: Aspirin Enteric Coated 81 MG Tablet PO SCH (20:48)
[2018-02-27] MEDS: Diltiazem CD (24hr) 120 MG CAPSULE PO SCH (20:55)
[2018-02-28 04:56] LABS: Hematocrit 22.3 % (35.3-44.9); Mean Corpuscular HGB Conc 31.4 g/dL (31.6-35.5); Mean Corpuscular Hemoglobin 28.2 pg (28.0-33.3); Mean Corpuscular Volume 89.9 fL (83.0-100.0); Mean Platelet Volume 9.7 fL (9.4-12.4); Platelet Count 366 K/mcL (140-400); Red Blood Count 2.48 M/mcL (3.82-4.97); Red Cell Distribution Width 17.3 % (11.5-14.5)
[2018-02-28] MEDS: Meropenem 1,000 MG in Water for inj. (sterile) 20 ML 10 ML IVP SCH ×2 (05:58→18:14)
[2018-02-28] MEDS: Diltiazem CD (24hr) 120 MG CAPSULE PO SCH (10:06)
[2018-02-28] MEDS: Aspirin Enteric Coated 81 MG Tablet PO SCH (10:07)
--- NOTE | 2018-02-28 13:03 | Internal Med Progress Note ---
Date of Encounter: 02/28/18 Time of Encounter: 13:00 - Assessment and plan (1) Bilateral pneumonia Current Visit: Yes Status: Acute Assessment and plan: Will plan to discuss next week with Dr. Drew Mathews M.D., infectious disease specialist, about whether or not patient may be discharged. She is to continue IV antibiotics until then. Qualifiers: Pneumonia type: due to unspecified organism Lung location: unspecified part of lung Qualified Code(s): J18.9 - Pneumonia, unspecified organism (2) Atrial fibrillation Current Visit: Yes Status: Acute Assessment and plan: Exam today is consistent with atrial fibrillation but rate is controlled. She is on Xarelto for this. Qualifiers: Atrial fibrillation type: paroxysmal Qualified Code(s): I48.0 - Paroxysmal atrial fibrillation (3) Septic arthritis Current Visit: Yes Status: Acute Assessment and plan: Apparently stable and on antibiotics. Apparently, to have a reimplant when finished with her antibiotics for her pneumonia. Qualifiers: Septic arthritis location: hip Septic arthritis organism: due to unspecified organism Laterality: right Qualified Code(s): M00.9 - Pyogenic arthritis, unspecified (4) GERD (gastroesophageal reflux disease) Current Visit: Yes Status: Acute Assessment and plan: No complaints and will continue current regimen. Qualifiers: Esophagitis presence: esophagitis presence not specified Qualified Code(s): K21.9 - Gastro-esophageal reflux disease without esophagitis (5) Acute blood loss anemia Current Visit: Yes Status: Acute (6) Chronic renal disease, stage III Current Visit: Yes Status: Acute Assessment and plan: Improving, slightly. (Creatinine yesterday was 1.4). (7) Paraproteinemia Current Visit: Yes Status: Acute Assessment and plan: Appointment as noted above. (8) Hypervitaminosis D Current Visit: Yes Status: Acute Assessment and plan: Vitamin D is thus on hold. (9) Dermatomyositis Current Visit: Yes Status: Acute Assessment and plan: Clinically stable. (10) History of DVT (deep vein thrombosis) Current Visit: Yes Status: Acute Assessment and plan: On Xarelto. (11) Glaucoma Current Visit: Yes Status: Acute Assessment and plan: We will continue current regimen. Qualifiers: Glaucoma type: unspecified Laterality: bilateral Qualified Code(s): H40.9 - Unspecified glaucoma (12) Loose bowel movement Current Visit: Yes Status: Acute Assessment and plan: This does not sound like diarrhea but will need to monitor, given the patient on multiple antibiotics. - Subjective Interval history: Patient has only the complaint of loose bowels. She has had a total of 4 bowel movements since last evening but this afternoon her bowels seem normal. She denies diarrhea and states they are only loose. She thinks she is a little more swollen at the ankles and she normally is. She denies dyspnea, etc. She is awaiting her 03/04/2018 appointment with oncology regarding her abnormal protein in her blood. Discussed care with other providers and/or nursing. Patient has no complaint of chest discomfort, dyspnea, orthopnea, palpitations, nausea or vomiting, constipation or diarrhea, other changes in bowel habits, difficulty with urination, rash or itching, or other new complaints, except as mentioned above. Review of systems is otherwise negative. - Constitutional Vitals: Temp Pulse Resp BP Pulse Ox 97.9 F 97 16 143/72 91 02/28/18 08:00 02/28/18 08:00 02/28/18 08:00 02/28/18 08:00 02/28/18 08:00 Exam: Examination: (Except as mentioned above): General: In no apparent distress. Alert and oriented 3. Nondiaphoretic. Head: Atraumatic and normocephalic. Respiratory: No use of accessory muscles. Lungs are clear throughout. Normal airflow. Cardiovascular: Irregularly irregular consistent with atrial fibrillation. Abdomen: Bowel sounds are normal. No hepatosplenomegaly mass or tenderness appreciated. Obese and therefore difficult to palpate deeply. Extremities: No cyanosis clubbing or edema. I see not even trace edema. Skin: Warm and non-diaphoretic with no new lesions noted. Internal Medicine: Result - Labs CBC & Chem 7: 02/28/18 04:36 02/26/18 05:50 Labs: Short CBC 02/28/18 Range/Units 04:36 WBC 7.5 (4.3-11.1) K/mcL Hgb 7.0 L (11.5-15.4) g/dL Hct 22.3 L (35.3-44.9) % Plt Count 366 (140-400) K/mcL - ABG Interpretation ABG results: PT/INR, D-dimer PT 25.3 Seconds (9.4-12.1) H 02/22/18 04:35 Consult Discharge Plan - Plan Referrals: Matthew Francois MD [Partnered Physician] - 03/04/18 8:30 am Palmira Piedra MD [Primary Care Provider] -
[2018-02-28] MEDS: *HR* Rivaroxaban 15 MG TABLET PO SCH (18:14)
[2018-02-28] MEDS: Multivit/Ca/Min/Fe/FA 1 TAB TABLET PO SCH (19:58)
[2018-03-01] MEDS: Meropenem 1,000 MG in Water for inj. (sterile) 20 ML 10 ML IVP SCH ×2 (05:53→17:27)
[2018-03-01] MEDS: Aspirin Enteric Coated 81 MG Tablet PO SCH (08:42)
[2018-03-01] MEDS: Diltiazem CD (24hr) 120 MG CAPSULE PO SCH (08:42)
--- NOTE | 2018-03-01 12:02 | Electrocardiograph Report ---
[place] [id number] Test Date: 2018-02-28 Pat Name: Isidra Borges Department: 2001 Room: 105 Gender: F Button Clamper: Tb : 1945 Requested By: Sushil Reid Order Number: [id number] Reading MD: Jeannette Brown Measurements Intervals [place] Rate: 97 P: 8 MD: 160 QRS: -26 QRSD: 104 T: 1 QT: 374 QTc: 429 Interpretive Statements SINUS RHYTHM BORDERLINE LEFT AXIS DEVIATION [QRS AXIS < -20] LOW QRS VOLTAGE IN PRECORDIAL LEADS [QRS DEFLECTION < 1.0 mV IN CHEST LEADS] Electronically Signed On 03-01-2018 12:01:11 EDT by Jeannette Brown
--- NOTE | 2018-03-01 15:21 | Internal Med Progress Note ---
Date of Encounter: 03/01/18 Time of Encounter: 15:10 - Assessment and plan (1) Bilateral pneumonia Current Visit: Yes Status: Acute Assessment and plan: Continue current therapy. Discussion with Dr. Drew Mathews as planned for next week per primary team. Qualifiers: Pneumonia type: due to unspecified organism Lung location: unspecified part of lung Qualified Code(s): J18.9 - Pneumonia, unspecified organism (2) Atrial fibrillation Current Visit: Yes Status: Acute Assessment and plan: Continue current therapy, including Xarelto. Qualifiers: Atrial fibrillation type: paroxysmal Qualified Code(s): I48.0 - Paroxysmal atrial fibrillation (3) Septic arthritis Current Visit: Yes Status: Acute Assessment and plan: Continue current therapy, including reimplant after finishing with antibiotics f or PNA per report. Qualifiers: Septic arthritis location: hip Septic arthritis organism: due to unspecified organism Laterality: right Qualified Code(s): M00.9 - Pyogenic arthritis, unspecified (4) GERD (gastroesophageal reflux disease) Current Visit: Yes Status: Acute Assessment and plan: Continue current regimen. Qualifiers: Esophagitis presence: esophagitis presence not specified Qualified Code(s): K21.9 - Gastro-esophageal reflux disease without esophagitis (5) Acute blood loss anemia Current Visit: Yes Status: Acute Assessment and plan: Asymptomatic at this time. CBC/d tomorrow morning. (6) Chronic renal disease, stage III Current Visit: Yes Status: Acute Assessment and plan: Continue current therapy. (7) Hypervitaminosis D Current Visit: Yes Status: Acute Assessment and plan: Continue to hold off on vitamin D. (8) History of DVT (deep vein thrombosis) Current Visit: Yes Status: Acute Assessment and plan: Continue Xarelto. (9) Loose bowel movement Current Visit: Yes Status: Acute Assessment and plan: Clinical monitoring. - Time Spent With Patient less than 15 minutes - Subjective Interval history: No bleeding. Feeling "fine." Has been having loose and soft stools, but no diarrhea. - Constitutional Vitals: Temp Pulse Resp BP Pulse Ox 97.9 F 101 18 146/72 93 03/01/18 07:06 03/01/18 07:06 03/01/18 07:06 03/01/18 07:06 03/01/18 07:06 General appearance: Present: no acute distress Exam: Gen: A&Ox3, NAD. HEENT: NCAT. Neck: No palpable lymphadenopathy or thyromegaly. CV: RRR, S1S2. No murmur. Lungs: Adequate air exchange with mild, bibasilar crackles. Abd: (+)BS. NDNT. Neuro: RLE weakness noted (due to multiple surgeries per the patient). Skin: No rash. Ext: No pitting edema. Internal Medicine: Result - Labs CBC & Chem 7: 02/28/18 04:36 02/26/18 05:50 - ABG Interpretation ABG results: PT/INR, D-dimer PT 25.3 Seconds (9.4-12.1) H 02/22/18 04:35 Consult Discharge Plan - Plan Referrals: Matthew Francois MD [Partnered Physician] - 03/04/18 8:30 am Palmira Piedra MD [Primary Care Provider] -
[2018-03-01] MEDS: *HR* Rivaroxaban 15 MG TABLET PO SCH (17:27)
[2018-03-01] MEDS: Multivit/Ca/Min/Fe/FA 1 TAB TABLET PO SCH (20:21)
[2018-03-02 05:09] LABS: Basophils % 0.6 %; Eosinophils # 0.5 K/mcL (0.0-0.6); Eosinophils % 6.2 %; Hematocrit 23.7 % (35.3-44.9); Hemoglobin 7.6 g/dL (11.5-15.4); Immature Granulocytes % 0.7 % (0-4); Lymphocytes # 2.1 K/mcL (0.6-4.6); Lymphocytes % 28.4 %; Mean Corpuscular HGB Conc 32.1 g/dL (31.6-35.5); Mean Corpuscular Hemoglobin 28.7 pg (28.0-33.3); Mean Corpuscular Volume 89.4 fL (83.0-100.0); Mean Platelet Volume 9.5 fL (9.4-12.4); Monocytes % 13.6 %; Neutrophils # 3.6 K/mcL (1.6-8.9); Platelet Count 383 K/mcL (140-400); Red Blood Count 2.65 M/mcL (3.82-4.97); Segmented Neutrophils % 50.5 %
[2018-03-02] MEDS: Meropenem 1,000 MG in Water for inj. (sterile) 20 ML 10 ML IVP SCH ×2 (06:17→16:59)
[2018-03-02] MEDS: Diltiazem CD (24hr) 120 MG CAPSULE PO SCH (08:50)
[2018-03-02] MEDS: Aspirin Enteric Coated 81 MG Tablet PO SCH (08:51)
--- NOTE | 2018-03-02 13:24 | Internal Med Progress Note ---
Date of Encounter: 03/02/18 Time of Encounter: 13:10 - Assessment and plan (1) Bilateral pneumonia Current Visit: Yes Status: Acute Assessment and plan: Continue current therapy. Discussion with Dr. Drew Mathews as planned for next week per primary team. Qualifiers: Pneumonia type: due to unspecified organism Lung location: unspecified part of lung Qualified Code(s): J18.9 - Pneumonia, unspecified organism (2) Atrial fibrillation Current Visit: Yes Status: Acute Assessment and plan: Continue current therapy, including Xarelto. Qualifiers: Atrial fibrillation type: paroxysmal Qualified Code(s): I48.0 - Paroxysmal atrial fibrillation (3) Septic arthritis Current Visit: Yes Status: Acute Assessment and plan: Continue current therapy, including reimplant after finishing with antibiotics f or PNA per report. Qualifiers: Septic arthritis location: hip Septic arthritis organism: due to unspecified organism Laterality: right Qualified Code(s): M00.9 - Pyogenic arthritis, unspecified (4) GERD (gastroesophageal reflux disease) Current Visit: Yes Status: Acute Assessment and plan: Continue current regimen. Qualifiers: Esophagitis presence: esophagitis presence not specified Qualified Code(s): K21.9 - Gastro-esophageal reflux disease without esophagitis (5) Acute blood loss anemia Current Visit: Yes Status: Acute Assessment and plan: Asymptomatic at this time. H&H improving. Continue clinical monitoring. (6) Chronic renal disease, stage III Current Visit: Yes Status: Acute Assessment and plan: Continue current therapy. (7) Hypervitaminosis D Current Visit: Yes Status: Acute Assessment and plan: Continue to hold off on vitamin D. (8) History of DVT (deep vein thrombosis) Current Visit: Yes Status: Acute (9) Loose bowel movement Current Visit: Yes Status: Acute Assessment and plan: Clinical monitoring. - Time Spent With Patient less than 15 minutes - Subjective Interval history: Feeling "not too bad." Has been having loose and soft stools, but no diarrhea. Glad to know H&H went up. - Constitutional Vitals: Temp Pulse Resp BP Pulse Ox 98.2 F 87 16 127/67 95 03/02/18 07:00 03/02/18 07:00 03/02/18 07:00 03/02/18 07:00 03/02/18 07:00 General appearance: Present: no acute distress Exam: Gen: A&Ox3, NAD. HEENT: NCAT. Neck: No palpable lymphadenopathy or thyromegaly. CV: RRR, S1S2. No murmur. Capillary refill < 2 seconds. Lungs: Adequate air exchange with mild, bibasilar crackles. Abd: (+)BS. NDNT. Neuro: RLE weakness noted. Skin: No rash. Ext: No pitting edema. Internal Medicine: Result - Labs CBC & Chem 7: 03/02/18 04:50 02/26/18 05:50 Labs: Short CBC 03/02/18 Range/Units 04:50 WBC 7.2 (4.3-11.1) K/mcL Hgb 7.6 L (11.5-15.4) g/dL Hct 23.7 L (35.3-44.9) % Plt Count 383 (140-400) K/mcL Neutrophils # 3.6 (1.6-8.9) K/mcL - ABG Interpretation ABG results: PT/INR, D-dimer PT 25.3 Seconds (9.4-12.1) H 02/22/18 04:35 Consult Discharge Plan - Plan Referrals: Matthew Francois MD [Partnered Physician] - 03/04/18 8:30 am Palmira Piedra MD [Primary Care Provider] -
[2018-03-02] MEDS: *HR* Rivaroxaban 15 MG TABLET PO SCH (16:59)
[2018-03-02] MEDS: Multivit/Ca/Min/Fe/FA 1 TAB TABLET PO SCH (19:53)
[2018-03-03] MEDS: Meropenem 1,000 MG in Water for inj. (sterile) 20 ML 10 ML IVP SCH ×2 (06:00→18:16)
[2018-03-03 06:44] LABS: Calcium 9.1 mg/dL (8.6-10.3); Potassium 3.9 mEq/L (3.5-5.1)
[2018-03-03] MEDS: Aspirin Enteric Coated 81 MG Tablet PO SCH (08:18)
[2018-03-03] MEDS: Diltiazem CD (24hr) 120 MG CAPSULE PO SCH (08:18)
[2018-03-03 09:22] LABS: Basophils % 0.5 %; Eosinophils # 0.4 K/mcL (0.0-0.6); Eosinophils % 5.8 %; Hematocrit 24.4 % (35.3-44.9); Hemoglobin 7.7 g/dL (11.5-15.4); Immature Granulocytes % 0.5 % (0-4); Lymphocytes % 30.6 %; Mean Corpuscular HGB Conc 31.6 g/dL (31.6-35.5); Mean Corpuscular Hemoglobin 28.6 pg (28.0-33.3); Mean Corpuscular Volume 90.7 fL (83.0-100.0); Monocytes # 0.9 K/mcL (0.0-1.3); Neutrophils # 3.2 K/mcL (1.6-8.9); Platelet Count 389 K/mcL (140-400); Red Blood Count 2.69 M/mcL (3.82-4.97); Red Cell Distribution Width 18.4 % (11.5-14.5); Segmented Neutrophils % 48.6 %
--- NOTE | 2018-03-03 11:56 | Internal Med Progress Note ---
Addendum entered and electronically signed by Sushil Reid MD 03/03/18 11:58: I have personally performed a face to face evaluation on this patient. I have r eviewed and agree with the care plan. History and Exam by me shows: Bowels have normalized. Patient states that she has not needed oxygen for several days and her breathing feels like it is doing "pretty good." She has oncology appointment tomorrow to go over her bone marrow biopsy. Discussed care with other providers and/or nursing. Patient has no complaint of chest discomfort, dyspnea, orthopnea, palpitations, nausea or vomiting, constipation or diarrhea, other changes in bowel habits, difficulty with urination, rash or itching, or other new complaints, except as mentioned above. Review of systems is otherwise negative. Examination: (Except as mentioned above): General: In no apparent distress. Alert and oriented 3. Nondiaphoretic. Head: Atraumatic and normocephalic. Respiratory: No use of accessory muscles. Lungs are clear throughout. Normal airflow. Cardiovascular: Regular rate and rhythm without murmur appreciated. Abdomen: Bowel sounds are normal. No hepatosplenomegaly mass or tenderness appreciated. Obese and therefore difficult to palpate deeply. Extremities: No cyanosis clubbing or edema. Skin: Warm and non-diaphoretic with no new lesions noted. I informed patient that I would try to get ahold of her infectious disease doctor, later today. Original Note: Date of Encounter: 03/03/18 Time of Encounter: 11:53 - Assessment and plan (1) Bilateral pneumonia Current Visit: Yes Status: Resolved Assessment and plan: Improving. Continue IV antibiotics. Maintaining oxygen saturation on room air. to follow up with Dr hernandez. Qualifiers: Pneumonia type: due to unspecified organism Lung location: unspecified part of lung Qualified Code(s): J18.9 - Pneumonia, unspecified organism (2) Atrial fibrillation Current Visit: Yes Status: Acute Assessment and plan: Rate and rhythm stable. Continues xarelto. Qualifiers: Atrial fibrillation type: paroxysmal Qualified Code(s): I48.0 - Paroxysmal atrial fibrillation (3) Septic arthritis Current Visit: Yes Status: Acute Assessment and plan: Continue IV antibiotics. Follow up with ortho as scheduled. Qualifiers: Septic arthritis location: hip Septic arthritis organism: due to unspecified organism Laterality: right Qualified Code(s): M00.9 - Pyogenic a rthritis, unspecified (4) Acute blood loss anemia Current Visit: Yes Status: Acute Assessment and plan: Chronic issue. hemoglobin 7.7 today. stable. Will follow. repeat CBC in am. Patient asymptomatic. (5) Chronic renal disease, stage III Current Visit: Yes Status: Acute Assessment and plan: Will continue to monitor labs. Avoid any nephrotoxic agents. (6) History of DVT (deep vein thrombosis) Current Visit: Yes Status: Acute Assessment and plan: on xarelto for prevention. - Time Spent With Patient less than 15 minutes - Subjective Interval history: Participating well with therapy. Toe touch weight-bearing to right lower extremity. Standby to contact guard assist for transfers. Ambulating with front wheeled walker. States pain is controlled. Bowels moving as normal. Maintaining appetite and hydration. Denies fever, chills, nausea vomiting or diarrhea. Denies shortness of breath or chest pain. - Constitutional Vitals: Temp Pulse Resp BP Pulse Ox 97.6 F 98 16 134/57 93 03/03/18 06:46 03/03/18 06:46 03/03/18 06:46 03/03/18 06:46 03/03/18 06:46 General appearance: Present: A&O X 3, pleasant, no acute distress, answers ques tions appropriately - Head Head exam: Present: atraumatic, normocephalic - Eye Eye exam: Present: PERRL, conjuntiva pink, sclera anicteric Pupils: Present: PERRL - Neck Neck exam general surgery: Present: supple, trachea midline. Absent: lymphadenopathy - Respiratory Respiratory exam: Present: CTAB. Absent: accessory muscle use, rales, rhonchi, wheezes - Cardiovascular Cardiovascular exam: Present: RRR, +S1, +S2. Absent: diastolic murmur, gallop, rubs, systolic murmur - GI/Abdominal GI/Abdominal exam: Present: normal bowel sounds, soft, no peritoneal signs. Absent: distended, tenderness - Extremities Exam Extremities exam: Present: warm, radial pulses palpable and symmetrical. Absent: calf tenderness, cyanotic, pedal edema - Neurological Exam Neurological exam: Present: CN II-XII intact, oriented X3, no focal deficits. Absent: pronater drift, facial droop, speech deficit - Skin Skin exam: Present: dry, intact Internal Medicine: Result - Labs CBC & Chem 7: 03/03/18 06:15 03/03/18 06:15 Labs: Short CBC 03/03/18 Range/Units 06:15 WBC 6.6 (4.3-11.1) K/mcL Hgb 7.7 L (11.5-15.4) g/dL Hct 24.4 L (35.3-44.9) % Plt Count 389 (140-400) K/mcL Neutrophils # 3.2 (1.6-8.9) K/mcL BMP 03/03/18 06:15 Sodium 138 Potassium 3.9 Chloride 107 Carbon Dioxide 27 BUN 15 Creatinine 1.29 H Glucose 95 Calcium 9.1 - ABG Interpretation ABG results: PT/INR, D-dimer PT 25.3 Seconds (9.4-12.1) H 02/22/18 04:35 Consult Discharge Plan - Plan Referrals: Matthew Francois MD [Partnered Physician] - 03/04/18 8:30 am Palmira Piedra MD [Primary Care Provider] -
[2018-03-03] MEDS: *HR* Rivaroxaban 15 MG TABLET PO SCH (16:44)
[2018-03-03] MEDS: Acetaminophen 325 MG TABLET PO PRN (16:44)
[2018-03-03] MEDS: Multivit/Ca/Min/Fe/FA 1 TAB TABLET PO SCH (20:55)
[2018-03-04] MEDS: Meropenem 1,000 MG in Water for inj. (sterile) 20 ML 10 ML IVP SCH (05:58)
[2018-03-04] MEDS: Aspirin Enteric Coated 81 MG Tablet PO SCH (11:09)
[2018-03-04] MEDS: Diltiazem CD (24hr) 120 MG CAPSULE PO SCH (11:09)
--- NOTE | 2018-03-04 12:01 | Internal Med Progress Note ---
Date of Encounter: 03/04/18 Time of Encounter: 12:09 - Assessment and plan (1) Bilateral pneumonia Current Visit: Yes Status: Resolved Assessment and plan: Improving. Continue IV antibiotics. Maintaining oxygen saturation on room air. to follow up with Dr hernandez. Qualifiers: Pneumonia type: due to unspecified organism Lung location: unspecified part of lung Qualified Code(s): J18.9 - Pneumonia, unspecified organism (2) Atrial fibrillation Current Visit: Yes Status: Acute Assessment and plan: Rate and rhythm stable. Continues xarelto. Qualifiers: Atrial fibrillation type: paroxysmal Qualified Code(s): I48.0 - Paroxysmal atrial fibrillation (3) Septic arthritis Current Visit: Yes Status: Acute Assessment and plan: Continue IV antibiotics. Follow up with ortho as scheduled. Qualifiers: Septic arthritis location: hip Septic arthritis organism: due to unspecified organism Laterality: right Qualified Code(s): M00.9 - Pyogenic arthritis, unspecified (4) Acute blood loss anemia Current Visit: Yes Status: Acute Assessment and plan: Chronic issue. hemoglobin 7.7 yesterday. stable. Will follow. repeat CBC in am. Patient asymptomatic. (5) Chronic renal disease, stage III Current Visit: Yes Status: Acute Assessment and plan: Will continue to monitor labs. Avoid any nephrotoxic agents. (6) History of DVT (deep vein thrombosis) Current Visit: Yes Status: Acute Assessment and plan: on xarelto for prevention. - Time Spent With Patient less than 15 minutes - Subjective Interval history: Participating well with therapy. Toe touch weight-bearing to right lower extremity. Patient is mod independent in room. Ambulating with front wheeled walker. States pain is controlled. Bowels moving as normal. Maintaining appetite and hydration. Denies fever, chills, nausea vomiting or diarrhea. Denies shortness of breath or chest pain. Returned from oncology appointment. No new orders. - Constitutional Vitals: Temp Pulse Resp BP Pulse Ox 98.3 F 90 16 128/73 96 03/04/18 07:00 03/04/18 07:00 03/04/18 07:00 03/04/18 07:00 03/04/18 07:00 General appearance: Present: cooperative, A&O X 3, pleasant, no acute distress, answers questions appropriately - Head Head exam: Present: atraumatic, normocephalic - Eye Eye exam: Present: PERRL, conjuntiva pink, sclera anicteric Pupils: Present: PERRL - Neck Neck exam general surgery: Present: supple, trachea midline. Absent: lymphad enopathy - Respiratory Respiratory exam: Present: CTAB. Absent: accessory muscle use, rales, rhonchi, wheezes - Cardiovascular Cardiovascular exam: Present: RRR, +S1, +S2. Absent: diastolic murmur, gallop, rubs, systolic murmur - GI/Abdominal GI/Abdominal exam: Present: normal bowel sounds, soft, no peritoneal signs. Absent: distended, tenderness - Extremities Exam Extremities exam: Present: warm, radial pulses palpable and symmetrical. Absent: calf tenderness, cyanotic, pedal edema - Neurological Exam Neurological exam: Present: CN II-XII intact, oriented X3, no focal deficits. Absent: pronater drift, facial droop, speech deficit - Skin Skin exam: Present: dry, intact Internal Medicine: Result - Labs CBC & Chem 7: 03/03/18 06:15 03/03/18 06:15 - ABG Interpretation ABG results: PT/INR, D-dimer PT 25.3 Seconds (9.4-12.1) H 02/22/18 04:35 Consult Discharge Plan - Plan Referrals: Matthew Francois MD [Partnered Physician] - 03/04/18 8:30 am Palmira Piedra MD [Primary Care Provider] -
[2018-03-04] MEDS ORDERED: Bismuth Subsalicylate 120 ML ORAL SUSPENSION PO PRN (14:21)
[2018-03-04] MEDS: *HR* Rivaroxaban 15 MG TABLET PO SCH (16:40)
[2018-03-04] MEDS: Multivit/Ca/Min/Fe/FA 1 TAB TABLET PO SCH (19:56)
[2018-03-05 06:58] VITALS: BP 113/67
[2018-03-05] MEDS: Diltiazem CD (24hr) 120 MG CAPSULE PO SCH (07:46)
[2018-03-05] MEDS: Aspirin Enteric Coated 81 MG Tablet PO SCH (07:47)
[2018-03-05] MEDS ORDERED: Doxycycline 100 MG CAPSULE PO SCH (09:00)
--- NOTE | 2018-03-05 09:53 | Discharge Summary ---
Date of Encounter: 03/05/18 Time of Encounter: 09:49 - Discharge Diagnosis (1) Septic arthritis Priority: Primary Status: Acute Comments: Patient currently is doing well. 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 Patient had follow-up with infectious disease with follow-up orders having her IV antibiotics discontinued and patient was placed on oral doxycycline for continued antibiotic coverage. Right hip surgical incision appears to be healing well. Patient remains toe-touch on right foot and has progressed well with physical therapy. Pain has been well managed with current medications. Patient is being discharged to home with follow-up with orthopedic surgeon and infectious disease physician. Patient is to follow-up with primary care physician and continue with current home medications. Patient will be given a prescription for doxycycline. Patient will continue with physical therapy through home health services Qualifiers: Septic arthritis location: hip Septic arthritis organism: due to unspecified organism Laterality: right Qualified Code(s): M00.9 - Pyogenic arthritis, unspecified (2) Bilateral pneumonia Priority: Secondary Status: Acute Comments: Patient had been treated for bilateral pneumonia. Currently patient has been afebrile with no productive cough. Patient has fine basilar rales heard to the left. Denies any dyspnea or chest discomforts. We will continue with doxycycline after discharge. We will continue follow-up with PCP Qualifiers: Pneumonia type: due to unspecified organism Lung location: unspecified part of lung Qualified Code(s): J18.9 - Pneumonia, unspecified organism (3) Atrial fibrillation Priority: Secondary Status: Chronic Comments: No acute issues during stay of facility. Patient's heart rate remains irregular but controlled rate less than 100. Patient is continue with current home medications after discharge. We will follow-up with PCP. Qualifiers: Atrial fibrillation type: paroxysmal Qualified Code(s): I48.0 - Paroxysmal atrial fibrillation (4) Chronic renal disease, stage III Priority: Secondary Status: Chronic Comments: No acute issues during stay. Patient's last creatinine has been actually lower at 1.29. We will continue with current home medications. Patient will continue with follow-up with PCP for further management Hospital course: Ms. Borges is a 72 year old female, who had a right total revision in May (approximately ) 2017 with infection in September 2017. She underwent right hip radical debridement with spacer placement. This was revised in November 2017, as well. She was treated with antibiotics and was to have reimplantation on 01/15/2018. This surgery could not be performed as she had respiratory distress and was admitted to [facility] with pneumonia. Chest x-ray at outside hospital was abnormal with bilateral infiltrates but especially left lower lung. She was seen in consultation by Dr. Drew Mathews, infectious disease medicine, who wants her to be on 2 weeks of IV meropenem, to have CBC, sedimentation rate, CRP, creatinine obtained every Saturday and faxed to him. (His fax number is [phone].) She is now sent here for strengthening and therapies to improve home function due to deconditioning. She had a PICC line in the right upper extremity. Her kidneys have not functioned well and this was noted to be worse at her recent admission. Creatinine was up to 1.81. Apparently, she had improvement of this down into the 1.7 range. During her stay at this facility patient progressed well with physical therapy. Patient's pain has been well managed. Patient was seen during follow-up with infectious disease and had her IV antibiotics discontinued along with her PICC line. Patient was placed on oral antibiotics and will be discharged to home with a prescription. Patient is to follow-up with her orthopedic surgeon and infectious disease after discharge. Patient will follow up with PCP and continue with the home medications. Patient is a continue with physical therapy with home health services Discharge discussed with: patient Time spent discussing smoking cessation with patient: 3 to 10 minutes - Time Spent with Patient Total time spent providing and/or coordinating discharge services: Less than 30 minutes - Discharge Medications Home Medications: Hydroxychloroquine [Plaquenuil] 400 mg PO DAILY 04/18/15 [History] Lansoprazole [Prevacid] 30 mg PO DAILY 04/18/15 [History] Multivitamin/Iron/Folic Acid [Centrum Complete Multivit Tab] 1 each PO BID 04/18/15 [History] Aspirin [Lo-Dose Aspirin EC] 81 mg PO DAILY 12/06/16 [History] Meropenem [Merrem] 1,000 mg IVPB Q12HR 02/21/18 [History] Rivaroxaban [Xarelto] 15 mg PO HS 02/21/18 [History] dilTIAZem HCl [Diltiazem 24Hr ER] 120 mg PO DAILY 02/21/18 [History] Allergies/Adverse Reactions: Allergy/AdvReac Type Severity Reaction Status Date / Time phenylephrine Allergy Intermediate Allergic Verified 03/04/18 08:55 rash to eyelid tropicamide Allergy Intermediate Allergic Verified 03/04/18 08:55 rash to eyelid Penicillins Allergy Unknown Unknown Verified 03/04/18 08:55 Sulfa (Sulfonamide Allergy Unknown Unknown Verified 03/04/18 08:55 Antibiotics) Date of admission: 02/21/18 17:34 Primary care physician: Palmira Piedra MD Consults: 02/21/18 18:13 Consult to Occupational Therapy [CONS] Routine Comment: Evaluate, develop and implement POC Reason for Consult: deconditioning Does patient have active BEDREST order?: No Is patient medically & hemodynamically stable?: Yes Patient assessed for mobility or mobilized this visit?: No Consult to Physical Therapy [CONS] Routine Comment: Evaluate, develop and implement POC Reason for Consult: deconditioning Does patient have active BEDREST order?: No Is patient medically & hemodynamically stable?: Yes Patient assessed for mobility or mobilized this visit?: No Consult to Recreational Therapy [CONS] Routine Comment: Evaluate, develop and implement POC Consult to Hand Bootmaker [CONS] Routine Reason for SW Consult: plan for discharge 02/21/18 18:17 Consult to Physical Medicine/Rehab [CONS] Routine Reason for Consult: Please evaluate and manage therapies' guidelines and recommend pathway to reconditioning. Call Completed: No 02/21/18 18:39 Consult to Nutrition [CONS] Routine Comment: Consulting Provider: NUTRITION Reason for Dietary Consult: MST Score Consult to Pastoral Services [CONS] Routine Comment: 02/24/18 16:15 Consult to Psychology [CONS] Routine Consulting Provider: Zandra Berry Reason for Consult: Possible depression; adjustment disorder Call Completed: No Discharging clinician: Christian Membreno - Constitutional Vitals: Temp Pulse Resp BP Pulse Ox 98.0 F 88 16 113/67 94 03/05/18 06:54 03/05/18 06:54 03/05/18 06:54 03/05/18 06:54 03/05/18 06:54 General appearance: Present: cooperative, A&O X 3, pleasant, no acute distress, answers questions appropriately - Head Head exam: Present: atraumatic, normocephalic - Eye Eye exam: Present: PERRL, conjuntiva pink, sclera anicteric Pupils: Present: PERRL - Neck Neck exam general surgery: Present: supple, trachea midline. Absent: lymphadenopathy - Respiratory Respiratory exam: Present: CTAB. Absent: accessory muscle use, rales, rhonchi, wheezes - Cardiovascular Cardiovascular exam: Present: RRR, +S1, +S2. Absent: diastolic murmur, gallop, rubs, systolic murmur - GI/Abdominal GI/Abdominal exam: Present: normal bowel sounds, soft, no peritoneal signs. Absent: distended, tenderness - Extremities Exam Extremities exam: Present: warm, radial pulses palpable and symmetrical. Absent: calf tenderness, cyanotic, pedal edema Additional comments: Right hip surgical incision appears to be healing well. No signs of infectious process. Slight swelling to right leg. - Neurological Exam Neurological exam: Present: CN II-XII intact, oriented X3, no focal deficits. Absent: pronater drift, facial droop, speech deficit - Skin Skin exam: Present: dry, intact - Patient Status Disposition: Home Health Service Condition: Good Functional capacity at discharge: uses cane/walker Overall status at discharge: patient is progressing back to baseline - Discharge Instructions Instructions: Doxycycline (By mouth), Pneumonia (DC) Follow Up With: Drew Mathews MD [Non-Partnered Physician] - (Follow up as needed. Update office when surgery date is known.) Matthew Francois MD [Partnered Physician] - 06/16/18 () Palmira Piedra MD [Primary Care Provider] - 03/11/18 2:00 pm Perfecto Tillman MD [Non-Partnered Physician] - (Make an appointment in 4 weeks.) Additional Instructions: Follow-up appointments: If there is not an appointment listed below, please call your physician and schedule a follow-up appointment. If you have congestive heart failure and your symptoms return, make an appointment with your physician. Medication List: Carry an up to date list of medications you are taking at all time. We have given you an updated medication list including any new medications that you have been prescribed. Please provide that list to your primary provider Symptoms: If your condition changes or you experience any of the following symptoms, notify your physician immediately: Unusual or worsening pain, fever, persistent nausea and vomiting, bleeding, increase in swelling (especially in your legs), sudden weight gain, extreme dizziness, chest pain, increased drainage or redness from a wound or incision. Go to the emergency department if you experience a problem with breathing. Weights: If you have a history of swelling or shortness of breath, weigh yourself daily and notify your physician if you have a weight gain of two or more pounds in one day or 5 or more pounds in a week. If you experience any of the warning signs for stroke: Sudden numbness or weakness of the face, arm or leg; especially on one side of the body, sudden confusion, trouble speaking or understanding, sudden trouble seeing in one or both eyes, sudden trouble walking, dizziness, loss of balance or coordination, sudden sever headache with no cause; Call 911 or go to the emergency room. Stroke is a medical emergency. Some risk factors for stroke: Age, cigarette smoking, diabetes, excessive alcohol consumption, family history, high blood pressure, overweight, physical inactivity, prior stroke, heart attack, diagnosis of carotid artery stenosis or other artery disease. If you smoke, STOP: Smoking or tobacco use significantly increases your risk of heart and lung disease. Your chance of disease greatly increases if you continue to smoke. For more information, call the [place] tobacco quit line for smoking cessation 1-649-LKEC-NOW ( ) - Diet and Activity Activity: ambulate only with your walker, as per physical therapy Diet: advance to your usual diet
--- NOTE | 2018-03-05 10:02 | Physician Discharge Referral ---
Home Health/Hosp Referral Info Transfer to: Home Health Provider in Charge Post Discharge: PCP - Diagnosis (1) Septic arthritis Priority: Primary Status: Acute (2) Bilateral pneumonia Priority: Secondary Status: Acute (3) Atrial fibrillation Priority: Secondary Status: Chronic (4) Chronic renal disease, stage III Priority: Secondary Status: Chronic - Respiratory Orders Smoking Cessation: Smoking cessation has been advised. For more information, call the [place] Tobacco Quit Line at 9-531-WNGO-NOW. - Diet/Nutrition Diet/Nutrition Orders: Regular - Activity Activity Orders: Up ad francisco, Walker - Services Needed Following services are medically necessary services: Nursing, Physical Therapy - Transfer Medications Home Medications: Hydroxychloroquine [Plaquenuil] 400 mg PO DAILY 04/18/15 [History] Lansoprazole [Prevacid] 30 mg PO DAILY 04/18/15 [History] Multivitamin/Iron/Folic Acid [Centrum Complete Multivit Tab] 1 each PO BID 04/18/15 [History] Aspirin [Lo-Dose Aspirin EC] 81 mg PO DAILY 12/06/16 [History] Meropenem [Merrem] 1,000 mg IVPB Q12HR 02/21/18 [History] Rivaroxaban [Xarelto] 15 mg PO HS 02/21/18 [History] dilTIAZem HCl [Diltiazem 24Hr ER] 120 mg PO DAILY 02/21/18 [History] Allergies/Adverse Reactions: Allergy/AdvReac Type Severity Reaction Status Date / Time phenylephrine Allergy Intermediate Allergic Verified 03/04/18 08:55 rash to eyelid tropicamide Allergy Intermediate Allergic Verified 03/04/18 08:55 rash to eyelid Penicillins Allergy Unknown Unknown Verified 03/04/18 08:55 Sulfa (Sulfonamide Allergy Unknown Unknown Verified 03/04/18 08:55 Antibiotics) Certification: Further, I certify that my clinical findings support that this patient is homebound (i.e. absences from home require considerable and taxing effort and are for medical reasons or worship services or infrequently or short duration when for other reasons) because: Homebound Reason: Patient requires assistance of a person or device to safely leave home, Post-surgery restriction and or conditions limit ability to leave home Attestation: My signature below is to certify that this patient is under my care and that I, or nurse practitioner, or a physician's medical receptionist assistant working with me, has a [id number] encounter with this patient.
== END 2018-03-05 11:20 | disposition home health service (06) | DRG 548 ==
LOC: INPGRE 02-21 17:34